=== PATIENT | female | born 1960 | race Caucasian/White ===

== ENCOUNTER → 2020-02-26 07:32 | Outpatient (CLI) | payer OTHER, SELFPAY ==
--- NOTE | ~2020-02-26 | MM_ITS ---
EXAMINATION: MM screening paula BI w taylor HISTORY: Screening mammogram TECHNIQUE: Craniocaudal and mediolateral oblique 3-D tomosynthesis images were obtained and synthetic 2-D images were generated. CAD analysis was submitted and interpreted. COMPARISON: 03/24/2018, 11/19/2016, 09/03/2015 bilateral digital screening mammogram examinations of th e BREAST PARENCHYMAL COMPOSITION: FINDINGS: There is no evidence of suspicious mass, calcification, or architectural distortion to sugg est malignancy in either breast. There has been no suspicious interval change. IMPRESSION: 1. No mammographic evidence of malignancy. 2. Recommend routine screening mammography in one year. BI-RADS Category 1: Negative Reviewed, dictated and finalized at location A.
--- NOTE | ~2020-02-26 | DEXA_ITS ---
Bone Density Report Name: Tram Rey Age: 59 Sex: Female Ethnicity: White Date of : 1960 Indication: postmenopausal; screening for osteoporosis; Referring Provider: NORBERTO, BENJI Study: Bone densitometry was performed. Exam Date: February 26, 2020 Accession number: [id number] Bone Density: Region BMD T-score Z-score Classification AP Spine (L1-L4) 1.228 1.6 2.9 Normal Femoral Neck (Left) 0.704 -1.3 -0.2 Osteopenia Total Hip (Left) 0.906 -0.3 0.5 Normal Femoral Neck (Right) 0.766 -0.7 0.4 Normal Total Hip (Right) 0.980 0.3 1.1 Normal Total Hip Mean 0.943 0.0 0.8 Normal World Health Organization criteria for BMD impression classify patients as: Normal (T-score at or above -1.0), Osteopenia (T-score between -1.0 and -2.5), or Osteoporosis (T-score at or below -2.5). 10-year Fracture Risk(1): Major Osteoporotic Fracture 8.2% Hip Fracture 0.7% Reported Risk Factors: [place] (), Neck BMD=0.704, BMI=24.4, alcohol use (1) FRAX(R) Version 3.08. Fracture probability calculated for an untreated patient. Fracture probability may be lower if the patient has received treatment. Previous Exams: Region Exam Age BMD T-score BMD Change BMD Change Date g/cm2 vs Baseline vs Previous AP Spine(L1-L4) 02/26/2020 59 1.228 1.6 -0.014 -0.014 09/03/2015 54 1.242 1.8 Total Hip(Left) 02/26/2020 59 0.906 -0.3 -0.045* -0.045* 09/03/2015 54 0.951 0.1 Total Hip(Right) 02/26/2020 59 0.980 0.3 -0.051* -0.051* 09/03/2015 54 1.031 0.7 *Denotes significance at 95% confidence level, LSC for AP Spine = 0.022 g/cm2, LSC for Total Hip = 0.027 g/cm2 Clinical Information Provided by Patient: Has 3 or more alcoholic drinks per day Has used the following medications: Vitamin D, Calcium, MTV Patient maximum height was 71 Menopause Age: 54 No regular weight bearing exercise Does not regularly consume dairy products Drinks caffeinated beverages Onset of menses at age 15 Number of children 2 Impression: The patient has low bone mass, based on the Left Femoral Neck T-score. The patient has an estimated ten-year risk of hip fracture of 0.7% and an estimated ten-year risk of major fracture of 8.2%, based on the WHO FRAX algorithm. The patient has risk factors, including: excessive alcohol use. The BMD for the Total Hip(Left) decreased, changing by -0.045 since the last D
== END ==
PROVIDERS: Visit Provider Nurse Practitioner
DX: Z12.31 Encounter for screening mammogram for malignant neoplasm of breast (principal); Z78.0 Asymptomatic menopausal state; M85.852 Other specified disorders of bone density and structure, left thigh
CPT/HCPCS: 77063; 77067; 77080

== ENCOUNTER → 2021-08-22 11:31 | Outpatient (CLI) | payer OTHER, SELFPAY ==
--- NOTE | ~2021-08-22 | MM_ITS ---
EXAMINATION: MM screening paula BI w taylor HISTORY: Screening mammogram, family history of breast cancer in her mother and sister. TECHNIQUE: Craniocaudal and mediolateral oblique 3-D tomosynthesis images were obtained and synthetic 2-D images were generated. CAD analysis was submitted and interpreted. COMPARISON: 02/26/2020, 03/24/2018, 11/19/2016 BREAST PARENCHYMAL COMPOSITION: There are scattered areas of fibroglandular density. FINDINGS: There is no suspicious mass, calcification, or architectural distortion to suggest malignan cy in either breast. There has been no suspicious interval change. IMPRESSION: 1. No mammographic evidence of malignancy. 2. Recommend routine screening mammography in one year. BI-RADS Category 1: Negative Reviewed, dictated and finalized at location A.
== END ==
PROVIDERS: Visit Provider Nurse Practitioner
DX: Z12.31 Encounter for screening mammogram for malignant neoplasm of breast (principal)
CPT/HCPCS: 77063; 77067

== ENCOUNTER → 2022-12-30 10:55 | Outpatient (CLI) | payer OTHER, SELFPAY ==
--- NOTE | ~2022-12-30 | US_ITS ---
US thyroid INDICATION: Abnormal thyroid function tests. TECHNIQUE: Real-time sonographic images of the thyroid gland were obtained. COMPARISON: No prior studies for comparison. FINDINGS: The right thyroid lobe measures 3.8 x 1.2 x 1.8 cm. The left thyroid lobe measures 6.4 x 2 .5 x 3.2 cm. The right lobe is diffusely heterogeneous and irregular, although no discrete mass ident ified. In the left lobe there is a large solid slightly hyperechoic mass which is wider than tall, sm oothly marginated with punctate echogenic foci, TR 5. This mass measures 3.9 x 3.2 x 3.1 cm with incr eased vascularity. Normal vascular flow is present. IMPRESSION: 1. Hypervascular 3.9 cm left thyroid mass, TR 5. Ultrasound-guided fine-needle aspiration biopsy recommended. Reviewed, dictated and finalized at location A.
== END ==
PROVIDERS: PCP Internal Medicine; Visit Provider Internal Medicine
DX: R94.6 Abnormal results of thyroid function studies (principal)
CPT/HCPCS: 76536

== ENCOUNTER 2023-01-26 12:47 | Outpatient (CLI) | payer OTHER, SELFPAY ==
--- NOTE | ~2023-01-26 | US_ITS ---
EXAMINATION: US FNA w image guidance DATE: 01/26/2023 14:31 INDICATION: Left thyroid nodule. TECHNIQUE: The procedure and its benefits and risks were discussed with the patient. Risks specifically discusse d included bleeding. The patient verbalized understanding of the risks and agreed to proceed. The nec k was prepped and draped in the usual sterile manner. 1% lidocaine was used for local anesthesia. 6 passes were made with a 25G needle into the lesion under ultrasound guidance. There were no immedia te complications. FINDINGS: Grayscale ultrasound images demonstrate needles advanced into a 4.9 cm nodule in left thyroid lobe fo r biopsy. IMPRESSION: 1. Ultrasound-guided fine needle aspiration of a left thyroid nodule. Reviewed, dictated and finalized at location A.
== END 2023-01-26 12:48 | disposition home or self-care (01) ==
PROVIDERS: PCP Internal Medicine; Visit Provider Internal Medicine
DX: R94.6 Abnormal results of thyroid function studies (principal); E04.1 Nontoxic single thyroid nodule
CPT/HCPCS: 10005; 88173; 88305

== ENCOUNTER → 2023-02-26 10:32 | Outpatient (CLI) | payer OTHER, SELFPAY ==
--- NOTE | ~2023-02-26 | MM_ITS ---
EXAMINATION: MM screening paula BI w taylor HISTORY: Screening TECHNIQUE: Craniocaudal and mediolateral oblique 3-D tomosynthesis images were obtained and synthetic 2-D images were generated. CAD analysis was submitted and interpreted. COMPARISON: Comparison to multiple prior studies sequentially, with oldest reviewed study dated 09/02. BREAST PARENCHYMAL COMPOSITION: There are scattered areas of fibroglandular density. FINDINGS: There is no evidence of suspicious mass, calcification, or architectural distortion to sugg est malignancy in either breast. There has been no suspicious interval change. IMPRESSION: 1. No mammographic evidence of malignancy. 2. Recommend routine screening mammography in one year. BI-RADS Category 1: Negative Reviewed, dictated and finalized at location A.
== END ==
PROVIDERS: PCP Nurse Practitioner; Visit Provider Nurse Practitioner
DX: Z12.31 Encounter for screening mammogram for malignant neoplasm of breast (principal)
CPT/HCPCS: 77063; 77067

== ENCOUNTER 2024-02-09 12:47 | Outpatient (CLI) | payer OTHER, SELFPAY ==
--- NOTE | ~2024-02-09 | US_ITS ---
EXAMINATION: US thyroid DATE: 02/09/2024 13:03 INDICATION: Multinodular goiter. TECHNIQUE: Multiple ultrasound images of the thyroid were obtained. COMPARISON: Ultrasound 12/30/2022 FINDINGS: The right thyroid lobe measures 4.0 x 1.2 x 1.9 cm. The left thyroid lobe measures 6.0 x 2.6 x 3.4 c m. The thyroid is heterogeneous and hypoechoic with increased vascularity. In the left thyroid lobe, there is a 4.0 cm solid, hypoechoic, wider than tall nodule with margins and punctate echogenic foci . IMPRESSION: 1. Left thyroid nodule, stable from 12/30/2022. Ultrasound-guided fine needle aspiration is recommende d. 2. Heterogeneous, hypervascular thyroid, likely chronic lymphocytic (Rowan) thyroiditis. Reviewed, dictated and finalized at location A. IMPRESSION: 1. Left thyroid nodule, stable from 12/30/2022. Ultrasound-guided fine needle as piration is recommended. 2. Heterogeneous, hypervascular thyroid, likely chronic lymphocytic (Rowan) thyroiditis.
== END 2024-02-09 12:48 | disposition home or self-care (01) ==
LOC: GOSHIMG 12:49
PROVIDERS: PCP Internal Medicine; Visit Provider Internal Medicine
DX: E04.2 Nontoxic multinodular goiter (principal)
CPT/HCPCS: 76536

== ENCOUNTER 2024-02-29 11:34 | Outpatient (CLI) | payer OTHER, SELFPAY ==
--- NOTE | ~2024-02-29 | MM_ITS ---
EXAMINATION: MM screening paula BI w taylor HISTORY: Screening TECHNIQUE: Craniocaudal and mediolateral oblique 3-D tomosynthesis images were obtained and synthetic 2-D images were generated. CAD analysis was submitted and interpreted. COMPARISON: Comparison to multiple prior studies sequentially, with oldest reviewed study dated 11/19. BREAST PARENCHYMAL COMPOSITION: Not dense: There are scattered areas of fibroglandular density. FINDINGS: There is no evidence of suspicious mass, calcification, or architectural distortion to sugg est malignancy in either breast. There has been no suspicious interval change. IMPRESSION: 1. No mammographic evidence of malignancy. 2. Recommend routine screening mammography in one year. BI-RADS Category 1: Negative Reviewed, dictated and finalized at location B.
== END 2024-02-29 11:35 | disposition home or self-care (01) ==
LOC: MICIMG 11:34
PROVIDERS: PCP Nurse Practitioner; Visit Provider Nurse Practitioner
DX: Z12.31 Encounter for screening mammogram for malignant neoplasm of breast (principal)
CPT/HCPCS: 77063; 77067

== ENCOUNTER 2024-03-09 07:15 | Outpatient (CLI) | payer OTHER, SELFPAY ==
--- NOTE | ~2024-03-09 | DEXA_ITS ---
Bone Density Report Name: GIOVANNA YEE Age: 63 Sex: Female Ethnicity: White Date of : 1960 Indication: postmenopausal; screening for osteoporosis; Referring Provider: Baldev, Mayelin Study: Bone densitometry was performed. Exam Date: March 09, 2024 Accession number: [id number] Bone Density: Region BMD T-score Z-score Classification AP Spine(L1-L4) 1.197 1.4 2.9 Normal Femoral Neck (Left) 0.676 -1.6 -0.2 Osteopenia Total Hip (Left) 0.919 -0.2 0.8 Normal Femoral Neck (Right) 0.754 -0.9 0.5 Normal Total Hip (Right) 0.977 0.3 1.3 Normal Femoral Neck Mean 0.715 -1.2 0.1 Osteopenia Total Hip Mean 0.948 0.0 1.1 Normal World Health Organization criteria for BMD impression classify patients as: Normal (T-score at or above -1.0), Osteopenia (T-score between -1.0 and -2.5), or Osteoporosis (T-score at or below -2.5). 10-year Fracture Risk(1): Major Osteoporotic Fracture 9.7% Hip Fracture 1.1% Reported Risk Factors: [place] (), Neck BMD=0.676, BMI=23.5, alcohol use (1) FRAX(R) Version 3.08. Fracture probability calculated for an untreated patient. Fracture probability may be lower if the patient has received treatment. Clinical Information Provided by Patient: Has 3 or more alcoholic drinks per day Has used the following medications: Vitamin D, Calcium, multi Patient maximum height was 71 Menopause Age: 61 No regular weight bearing exercise Drinks caffeinated beverages Onset of menses at age 14 Number of children 2 Impression: The patient has low bone mass, based on the Left Femoral Neck T-score. The patient has risk factors, including: excessive alcohol use. Discussion: BONE DENSITY IS LOW AT ONE OR MORE SKELETAL SITES. This patient's lowest T-score is low at one or more skeletal sites. It meets the World Health Organization's (WHO) criteria for ?low bone mass? (T-score between -1.0 and -2.5). The patient's 10-year risk of fracture as calculated by FRAX is less than the threshold where pharmacological therapy is recommended by the National Osteoporosis Foundation (NOF). However, all treatment decisions require clinical judgment and consideration of individual patient factors, including patient preferences, comorbidities, previous drug use, risk factors not captured in the FRAX model (e.g., frailty, falls, vitamin D deficiency, increased bone turnover, interval significant decline in bone density) and possible under or overestimation of fracture risk by FRAX. The patient should follow a healthful lifestyle (good nutrition with adequate calcium and vitamin D, and appropriate weight-bearing exercise). Follow-Up: Consider repeating this study in 2 to 3 years to reassess this patient's status, or sooner if there is some new clinical i
== END 2024-03-09 07:16 | disposition home or self-care (01) ==
PROVIDERS: PCP Internal Medicine; Visit Provider Nurse Practitioner
DX: Z78.0 Asymptomatic menopausal state (principal); M85.89 Other specified disorders of bone density and structure, multiple sites
CPT/HCPCS: 77080

== ENCOUNTER 2025-03-13 12:25 | Outpatient (CLI) | payer OTHER, SELFPAY ==
--- NOTE | ~2025-03-13 | US_ITS ---
Clinical history:Thyroid nodule EXAM:Ultrasound thyroid TECHNIQUE:Multiple static grayscale images and color Doppler images were obtained thyroid gland. Comparisons:12/30/2022 and 02/09/2024 FINDINGS: Right thyroid lobe measures 3.5 x 1.1 x 1.4 cm and is heterogeneous with prominent vascular flow. Left thyroid lobe is enlarged and heterogeneous and measures 5.6 x 3.2 x 3.2 cm with prominent vascular flow. There is a solid hypoechoic nodule with a few echogenic foci in the left thyroid lobe which measures 3.7 x 3.1 x 3.0 cm, the finding measured 4.0 x 2.8 x 3.1 cm on 02/09/2024 and measures 3.9 cm on 06/01/2023. TR 5 Isthmus is heterogeneous and measures 4 mm. IMPRESSION: 1. There is a 3.7 cm left thyroid nodule which is stable dating back to 12/30/2022. TR 5. A fine-needle aspiration is recommended if not already performed. 2. Thyroid gland is heterogeneous with prominent vascular flow. Consider thyroiditis. Reviewed, dictated and finalized at location Q. IMPRESSION: 1. There is a 3.7 cm left thyroid nodule which is stable dating back to 12/31/19 23. TR 5. A fine-needle aspiration is recommended if not already performed. 2. Thyroid gland is heterogeneous with prominent vascular flow. Consider thyroi ditis.
--- OUTSIDE RECORDS SUMMARY | 2025-03-13 13:17 | XMS_ITS | Clinical Summary ---
Author Organization [facility] Address [address] [place] [address] Care Team Providers Care Studio Operations Manager Name Role Phone Mayelin Clemens NP Primary Care Provider [phone] Allergies No known active allergies Medications No known medications Active Problems Problem Noted Date Diagnosed Date Encounter for screening colonoscopy 10/05/2024 Left elbow pain 01/20/2024 Immunizations Immunization Administration Dates Next Due Td, adsorbed 10/02/2017 Family History Medical History Relation Name Comments Arthritis Other Relation Name Status Comments Other Social History Tobacco Use Types Packs/Day Years Used Date Smoking Tobacco: Never Smokeless Tobacco: Never Tobacco Cessation:Counseling Given: Not Answered Comments Unknown Sex and Gender Information Value Date Recorded Sex Assigned at Not on file Legal Sex Female 1:55 PM CDT Gender Identity Not on file Sexual Orientation Not on file Obstetrics History Last Filed Vital Signs Vital Sign Reading Time Taken Comments Blood Pressure 131/85 01/20/2024 9:04 AM CDT Pulse 85 01/20/2024 9:04 AM CDT Temperature 36.7 C (98.1 F) 01/13/2024 10:24 AM CDT Respiratory Rate 16 01/20/2024 9:04 AM CDT Oxygen Saturation 98% 01/13/2024 10: 24 AM CDT Inhaled Oxygen Concentration - - Weight 75.2 kg (165 lb 12.8 oz) 01/20/2024 9:04 AM CDT Height 180.3 cm (5' 11) 01/20/2024 9:04 AM CDT Body Mass Index 23.12 01/20/2024 9:04 AM CDT Plan of Treatment Upcoming Encounters Date Type Department Care Team (Late st Contact Info) Description 06/15/2025 8:30 AM REAMING MACHINE OPERATOR FOR PLASTIC Hospital Encounter [facility] [address] [place] [address] Demarcus Medel MD [address] [place] [address] [place] [address] 06/15/2025 8:30 AM REAMING MACHINE OPERATOR FOR PLASTIC - 06/15/2025 9:00 AM REAMING MACHINE OPERATOR FOR PLASTIC Surgery [facility] [address] [place], [place] [address]Demarcus Alvarez MD [address] [address] COLONOSCOPY Scheduled Procedures Name Priority Associated Diagnoses Date/Ti me COLONOSCOPY Encounter for screening colonoscopy 06/15/2025 8:30 AM REAMING MACHINE OPERATOR FOR PLASTIC Health Maintenance Due Date Last Done Comments Breast Cancer Screening-Mammogram 1960 Cervical Cancer Screening 1960 Colon Cancer Screening-Colonoscopy 1960 Depression Screening 1960 Hepatitis C Screening 1960 Hepatitis B Screening 1980 Regular Well Visit/Exam 18-64 1980 Zoster Vaccine (1 of 2) 2012 DTaP/Tdap/Td Vaccine (1 - Tdap) 10/03/2017 10/02/2017, 10/02/2017 Covid-19 Vaccine (4 - 2024-2 6 season) 2025 06/14/2021, 08/17/2020, 07/20/2020 Influenza Vaccine (#1) 2025 , 03/17/2018, 06/24/2013 Pneumococcal vaccine <65 Aged Out No longer eligible based on patient's age to complete this topic Insurance [employer] Care Teams Studio Operations Manager Relationship Specialty Start Date End Date Mayelin Clemens NP [address] [place] [address] [address] PCP - General Nurse Practitioner 10/05/24
--- OUTSIDE RECORDS SUMMARY | 2025-03-13 13:17 | XMS_ITS | Clinical Summary ---
Author Organization [facility] Address [address] [place] [address] Care Team Providers Care Slag Production Worker Name Role Phone Unavailable Primary Care Provider Unavailabl e Social History Tobacco Use Types Packs/Day Years Used Date Smoking Tobacco: Never Assessed Comments Unknown Sex and Gender Information Value Date Recorded Sex Assigned at Not on file Legal Sex Female 2:59 PM PATENT EXAMINER Gender Identity Not on file Sexual Orientation Not on file Plan of Treatment Health Maintenance Due Date Last Done Comments Hepatitis C Virus (HCV) Screening 1960 Pap Smear 12/27/1983 Cervical Cancer Screening (CCS) 1992 HPV/Cotest 1992 Cologuard 12/27/2007 Colonoscopy 12/27/2007 Colorectal Cancer Screening 12/27/2007 Immunochemical Fecal Occult Blood 12/27/2007 Pneumococcal Immunization (5 0+ years) (1 of 1 - PCV) 2012 Zoster Immunization (1 of 2) 2012 Influenza Immunization (#1) 02/05/202503/07, 06/24/2013 SARS-COV-2 Immunization ( season) 2025 Respiratory Syncytial Virus (RSV) Immunization (Adult) (1 - 1-dose 75+ series) 2037 DTaP/Tdap/Td Immunization Discontinued 10/02/2017 TdaP Immunization Completed 10/02/2017 Hepatitis B Immunization Aged Out No longer eligible based on patient's age to complete this topic Human Papillomavirus (HPV) Immunization Aged Out No longer eligible based on patient's age to complete this topic Meningococcal Immunization (ACWY) Aged Out No longer eligible based on patient's age to complete this topic Rotavirus Immunization Aged Out No lo nger eligible based on patient's age to complete this topic
== END 2025-03-13 12:26 | disposition home or self-care (01) ==
PROVIDERS: PCP Nurse Practitioner; Visit Provider Internal Medicine
DX: E04.1 Nontoxic single thyroid nodule (principal)
CPT/HCPCS: 76536